=== PATIENT | female | born 1935 | race Asian ===

== ENCOUNTER 2016-12-25 15:37 | Emergency (ER) | payer MEDICARE, OTHER ==
[~2016-12-25] VITALS: Ht 162.6 cm; Wt 62.0 kg
[2016-12-25] MEDS ORDERED: ESTR625TA PO (16:15)
[2016-12-25] MEDS ORDERED: MULTTAB4 PO (16:15)
[2016-12-25] MEDS ORDERED: METO50TA7 PO (16:15)
[2016-12-25] MEDS ORDERED: [UNRECOGNIZED DRUG - CODE] PO (16:15)
--- NOTE | 2016-12-25 17:44 | REP ---
RIGHT LOWER EXTREMITY DUPLEX VEINS: HISTORY: Swelling. There are no filling defects in the deep venous system. The deep venous system is patent. IMPRESSION: There is no deep venous thrombosis. Signed by Zacarias Wyatt MD 12/25/2016 06:21 P
[2016-12-25] MEDS ORDERED: NAPR500T PO (17:59)
--- NOTE | 2016-12-25 18:07 | REP ---
LIMITED RIGHT EXTREMITY NONVASCULAR ULTRASOUND: HISTORY: Tenderness. Nonocclusive thrombus is present in a varicose vein along the medial aspect of the right calf. There is no mass or fluid collection. IMPRESSION: There is nonocclusive thrombus in a varicose vein in the medial right calf. Signed by Zacarias Wyatt MD 12/25/2016 06:21 P
[2016-12-25 18:29] VITALS: BP 158/80
== END 2016-12-25 18:32 | disposition home or self-care (01) ==
LOC: M ED 15:37
DX: I80.01 Phlebitis and thrombophlebitis of superficial vessels of right lower extremity (principal); I83.91 Asymptomatic varicose veins of right lower extremity; I10 Essential (primary) hypertension; F17.210 Nicotine dependence, cigarettes, uncomplicated; Z79.899 Other long term (current) drug therapy

== ENCOUNTER → 2018-09-29 | Outpatient (CLI) | payer MEDICARE, OTHER ==
[~2018-09-29] MED LIST: ESTR625TA PO; METO50TA7 PO; MULTTAB4 PO; NAPR-837 PO; OYST500T7 PO
[2018-09-29 07:09] LABS: HEMATOCRIT 39.1 % (36.0-47.0); HEMOGLOBIN 13.2 g/dl (12.0-15.5); MEAN CORPUSCULAR HEMOGLOBIN 30.9 pg (27.0-33.0); MEAN CORPUSCULAR HGB CONC 33.8 g/dl (32.0-36.5); MEAN CORPUSCULAR VOLUME 91.6 fl (80.0-96.0); PLATELET COUNT, AUTOMATED 280 10^3/uL (150-450); RED BLOOD COUNT 4.27 10^6/uL (4.00-5.40); WHITE BLOOD COUNT 8.1 10^3/uL (4.0-10.0)
[2018-09-29 07:29] LABS: HEMOGLOBIN A1c 5.8 %
[2018-09-29 07:44] LABS: ALBUMIN 3.4 GM/DL (3.2-5.2); ALT/SGPT 11 U/L (12-78); BILIRUBIN,TOTAL 0.3 MG/DL (0.2-1.0); BLOOD UREA NITROGEN 13 MG/DL (7-18); CALCIUM LEVEL 9.2 MG/DL (8.8-10.2); CARBON DIOXIDE LEVEL 26 MEQ/L (21-32); CHLORIDE LEVEL 108 MEQ/L (98-107); CHOLESTEROL LEVEL 207 MG/DL (<200); CHOLESTEROL RISK RATIO 3.285 (<5); CREATININE FOR GFR 0.66 MG/DL (0.55-1.30); GLOMERULAR FILTRATION RATE > 60.0 (>32); GLUCOSE, FASTING 111 MG/DL (70-100); HDL CHOLESTEROL 63 MG/DL (>40); LDL CHOLESTEROL 111 MG/DL (<100); NON-HDL-C 144 MG/DL; POTASSIUM SERUM 4.5 MEQ/L (3.5-5.1); SODIUM LEVEL 139 MEQ/L (136-145); TOTAL PROTEIN 7.2 GM/DL (6.4-8.2); TRIGLYCERIDES LEVEL 165 MG/DL (<150)
--- NOTE | 2018-09-29 07:46 | REP ---
PA and lateral chest: Comparison is 09/05/2015. The lung ordonez are clear. The cardiac size is normal. The daksha, mediastinum, and skeletal structures are unremarkable. Impression: Negative PA and lateral chest. There is no interval change. Electronically Signed by Mane Dye MD 09/29/2018 07:38 A
== END ==
LOC: M LAB 06:25
PROVIDERS: ATTEND Family Medicine
DX: D64.9 Anemia, unspecified (principal); R53.83 Other fatigue; J98.01 Acute bronchospasm

== ENCOUNTER 2019-02-08 16:26 | Emergency (ER) | payer MEDICARE, OTHER ==
[~2019-02-08] VITALS: Ht 167.6 cm; Wt 61.2 kg
--- NOTE | 2019-02-08 17:08 | REP ---
CT study of the cervical spine without contrast: History: . Technique: Helical scanning is acquired and overlapping 2 mm high resolution axial images were generated and reviewed at bone and soft tissue window settings. Coronal and sagittal multiplanar re-formations images are generated. CT findings: There is no evidence of cervical spine element fracture. No skull base fracture is seen. Cervical vertebral body heights are preserved. Alignment is normal. Facet joints are normally aligned bilaterally at each cervical level on multiplanar re-formations images. There is no evidence of intraspinal or paraspinal hematoma. No extra vertebral abnormality is seen. There is degenerative disc spurring at C7-T1 anteriorly on on the left. This is mild. Also some vascular calcification at the carotid bifurcations bilaterally. 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 Impression: Negative CT study of the cervical spine without contrast. No fracture seen. Electronically Signed by Nile Owens MD 02/08/2019 04:59 P
[2019-02-08] MEDS ORDERED: ACETAMINOPHEN 325 MG TAB PO ONE (18:30)
[2019-02-08] MEDS ORDERED: ADACEL/BOOSTRIX VACCINE (DIPHTH/PERTUSS/ACELL/TETANUS)0.5ML SYR (90715) IM ONE (18:30)
[2019-02-08] MEDS ORDERED: NEOSPORIN OINT 0.9 GM PKT (FLOOR STOCK) TOP ONE (18:30)
--- NOTE | 2019-02-08 19:11 | REP ---
Pelvis right hip: Two views. History: Pain after a fall from a ladder. Findings: AP and frog-leg views of the hip and AP view of the pelvis are presented. Bony pelvic ring is intact. Femoral heads are smooth and rounded joint spaces are preserved. No pelvic or sacral fracture is seen. No hip fractures noted. Impression: No fracture noted. Electronically Signed by Nile Owens MD 02/08/2019 07:03 P
[2019-02-08 19:57] VITALS: BP 190/93
--- NOTE | 2019-02-09 10:22 | REP ---
CT brain without contrast: History: Injury in a fall from a ladder. No comparison study. CT findings: Preliminary digital economics department chair radiograph is unremarkable. The bony calvarium is intact on bone window settings. There is a right posterior parietal scalp hematoma. No skull fracture is appreciated. There is mucosal thickening affecting the maxillary ethmoidal and left frontal sinuses. No intraorbital abnormalities appreciated. There is mild diffuse cerebral atrophy. Vascular calcification is visible in the distal carotid arteries. There is no evidence of intracranial hemorrhage. No acute infarction is seen. There are mild small vessel changes. Impression: Vascular calcification, diffuse atrophy, and small vessel changes. No intracranial injury is seen. No evidence of skull fracture. There is a right parietal scalp hematoma. Electronically Signed by Nile Owens MD 02/09/2019 07:09 P
== END 2019-02-08 20:03 | disposition home or self-care (01) ==
LOC: M ED 16:26
DX: S50.311A Abrasion of right elbow, initial encounter (principal); S70.01XA Contusion of right hip, initial encounter; S00.03XA Contusion of scalp, initial encounter; W11.XXXA Fall on and from ladder, initial encounter; Y92.018 Other place in single-family (private) house as the place of occurrence of the external cause; I10 Essential (primary) hypertension; Z79.899 Other long term (current) drug therapy

== ENCOUNTER → 2021-10-29 | Outpatient (CLI) | payer MEDICARE, OTHER ==
[~2021-10-29] MED LIST changes: +MULT1TAB74 PO; -MULTTAB4 PO; -OYST500T7 PO; +OYST500T8 PO
== END ==
LOC: M RAD 11:19
PROVIDERS: ATTEND Family Medicine
DX: M17.11 Unilateral primary osteoarthritis, right knee (principal)

== ENCOUNTER → 2022-12-12 | Outpatient (CLI) | payer MEDICARE, OTHER ==
[2022-12-12 07:56] LABS: HEMATOCRIT 39.3 % (36.0-47.0); HEMOGLOBIN 12.7 g/dl (12.0-15.5); MEAN CORPUSCULAR HEMOGLOBIN 31.2 pg (27.0-33.0); MEAN CORPUSCULAR HGB CONC 32.3 g/dl (32.0-36.5); MEAN CORPUSCULAR VOLUME 96.6 fl (80.0-96.0); PLATELET COUNT, AUTOMATED 232 10^3/uL (150-450); RED BLOOD COUNT 4.07 10^6/uL (4.00-5.40); WHITE BLOOD COUNT 5.1 10^3/uL (4.0-10.0)
[2022-12-12 08:22] LABS: ALBUMIN 3.2 G/DL (3.2-5.2); ALKALINE PHOSPHATASE 52 U/L (46-116); ALT/SGPT < 9 U/L (7.0-40); AST/SGOT 17 U/L (<34); BILIRUBIN,TOTAL 0.6 MG/DL (0.3-1.2); BLOOD UREA NITROGEN 16 MG/DL (9-23); CALCIUM LEVEL 9.1 MG/DL (8.3-10.6); CARBON DIOXIDE LEVEL 30 MMOL/L (20-31); CHLORIDE LEVEL 106 MMOL/L (98-107); CHOLESTEROL LEVEL 187 MG/DL (<200); CHOLESTEROL RISK RATIO 2.54 (<5); GLOMERULAR FILTRATION RATE > 60.0 (>32); GLUCOSE, FASTING 91 MG/DL (74-106); HDL CHOLESTEROL 73.6 MG/DL (>40); LDL CHOLESTEROL 96.8 MG/DL (<100); NON-HDL-C 113.4 MG/DL; POTASSIUM SERUM 4.2 MMOL/L (3.5-5.1); SODIUM LEVEL 139 MMOL/L (136-145); TOTAL PROTEIN 6.3 G/DL (5.7-8.2); TRIGLYCERIDES LEVEL 83 MG/DL (<150)
[2022-12-12 08:24] LABS: THYROID STIMULATING HORMONE 0.629 uIU/ML (0.55-4.78); TOTAL 25(OH) VITAMIN D 44.5 NG/ML (20.0-100.0)
[2022-12-12 09:49] LABS: HEMOGLOBIN A1c 5.5 % (4.0-6.0)
== END ==
LOC: M RAD 06:40
PROVIDERS: ATTEND Family Medicine
DX: I10 Essential (primary) hypertension (principal); R53.83 Other fatigue; E03.9 Hypothyroidism, unspecified

== ENCOUNTER → 2023-09-08 | Outpatient (CLI) | payer MEDICARE, OTHER ==
[2023-09-08 08:45] LABS: HEMATOCRIT 42.3 % (36.0-47.0); HEMOGLOBIN 13.8 g/dl (12.0-15.5); MEAN CORPUSCULAR HEMOGLOBIN 31.2 pg (27.0-33.0); MEAN CORPUSCULAR HGB CONC 32.6 g/dl (32.0-36.5); MEAN CORPUSCULAR VOLUME 95.7 fl (80.0-96.0); PLATELET COUNT, AUTOMATED 231 10^3/uL (150-450); RED BLOOD COUNT 4.42 10^6/uL (4.00-5.40); WHITE BLOOD COUNT 5.6 10^3/uL (4.0-10.0)
[2023-09-08 09:17] LABS: ALBUMIN 3.5 G/DL (3.2-5.2); ALKALINE PHOSPHATASE 55 U/L (46-116); ALT/SGPT < 9 U/L (7.0-40); AST/SGOT 16 U/L (<34); BILIRUBIN,TOTAL 0.7 MG/DL (0.3-1.2); BLOOD UREA NITROGEN 14 MG/DL (9-23); CALCIUM LEVEL 9.7 MG/DL (8.3-10.6); CARBON DIOXIDE LEVEL 32 MMOL/L (20-31); CHLORIDE LEVEL 107 MMOL/L (98-107); CHOLESTEROL LEVEL 190 MG/DL (<200); CHOLESTEROL RISK RATIO 2.72 (<5); CREATININE FOR GFR 0.76 MG/DL (0.55-1.30); GLOMERULAR FILTRATION RATE > 60.0 (>32); GLUCOSE, FASTING 86 MG/DL (74-106); HDL CHOLESTEROL 69.7 MG/DL (>40); LDL CHOLESTEROL 91.9 MG/DL (<100); NON-HDL-C 120.3 MG/DL; POTASSIUM SERUM 4.5 MMOL/L (3.5-5.1); SODIUM LEVEL 141 MMOL/L (136-145); TOTAL PROTEIN 6.5 G/DL (5.7-8.2); TRIGLYCERIDES LEVEL 142 MG/DL (<150)
[2023-09-08 09:19] LABS: THYROID STIMULATING HORMONE 1.047 uIU/ML (0.55-4.78)
[2023-09-08 09:26] LABS: HEMOGLOBIN A1c 5.4 % (4.0-6.0)
== END ==
LOC: M RAD 07:58
PROVIDERS: ATTEND Family Medicine
DX: I10 Essential (primary) hypertension (principal)

== ENCOUNTER 2025-01-07 06:55 | Emergency (ER) | payer MEDICARE, OTHER ==
[~2025-01-07] VITALS: Ht 167.6 cm; Wt 54.8 kg
[2025-01-07] MEDS ORDERED: METO1TAB87 PO (09:38)
[2025-01-07 10:44] LABS: KETONE, URINE AUTO RFX NEGATIVE (NEGATIVE); NITRITE, URINE AUTO RFX NEGATIVE (NEGATIVE); RBC, URINE AUTO RFX 90 /HPF (0-3); SQUAM EPITHELIAL CELL UR AURFX 1 /HPF (0-6)
[2025-01-07 10:46] LABS: LEUKOCYTE ESTERASE UR AUTO RFX 3+ (NEGATIVE); WBC, URINE AUTO RFX TNTC /HPF (0-3)
[2025-01-07] MEDS: METOPROLOL TART 25 MG TABLET PO ONE (10:46)
[2025-01-07 12:16] LABS: BASO # 0.0 10^3/uL (0.0-0.2); BASO % 0.5 % (0.0-1.0); EOS # 0.5 10^3/uL (0.0-0.5); EOS % 6.9 % (0.0-3.0); LYMPH # 2.2 10^3/uL (1.5-5.0); LYMPH % 29.4 % (24.0-44.0); MONO # 0.4 10^3/uL (0.0-0.8); MONO % 6.0 % (2.0-8.0); NEUTROPHILS # 4.2 10^3/uL (1.5-8.5); NEUTROPHILS % 56.9 % (36.0-66.0); PLATELET COUNT, AUTOMATED 234 10^3/uL (150-450)
[2025-01-07 13:01] LABS: ALT/SGPT < 9 U/L (7.0-40); AST/SGOT 28 U/L (<34); CALCIUM LEVEL 9.9 MG/DL (8.3-10.6); CARBON DIOXIDE LEVEL 30 MMOL/L (20-31); CHLORIDE LEVEL 103 MMOL/L (98-107); CREATININE FOR GFR 0.80 MG/DL (0.55-1.30); GLOMERULAR FILTRATION RATE 71.3 (>32); POTASSIUM SERUM 6.3 MMOL/L (3.5-5.1); SODIUM LEVEL 141 MMOL/L (136-145)
[2025-01-07] MEDS ORDERED: ISOVUE-370 76% 100 ML VIAL As Ordered ONE (13:03)
[2025-01-07] MEDS ORDERED: CALC-356 PO (13:18)
[2025-01-07] MEDS ORDERED: MULT-90 PO (13:18)
[2025-01-07] MEDS ORDERED: HOME MED LIST COMPLETE! XX SCH (13:20)
[2025-01-07 13:32] LABS: CK-MB VALUE MASS 3.5 NG/ML (<3.6)
[2025-01-07] MEDS: CALCIUM CHLORIDE 10% 1 GM/10 ML SYR IV ONE (13:32)
[2025-01-07 13:35] LABS: CPK CREATINE PHOSPHOKINASE 97 U/L (34-145); MB/CK RELATIVE INDEX 3.60 (< OR =4)
[2025-01-07 14:34] LABS: CALCIUM LEVEL 10.8 MG/DL (8.3-10.6); CARBON DIOXIDE LEVEL 30.0 MMOL/L (20-31); CHLORIDE LEVEL 102.0 MMOL/L (98-107); CREATININE FOR GFR 0.7 MG/DL (0.55-1.30); GLOMERULAR FILTRATION RATE 83.7 (>32); POTASSIUM SERUM 4.9 MMOL/L (3.5-5.1); SODIUM LEVEL 140.0 MMOL/L (136-145)
[2025-01-07] MEDS ORDERED: CEFD300C PO (15:38)
[2025-01-07] MEDS ORDERED: PHEN-372 PO (15:38)
[2025-01-07] MEDS ORDERED: NORV5TAB PO (15:44)
[2025-01-07 15:48] VITALS: BP 198/104
[2025-01-07] MEDS: amLODIPine 5 MG TAB PO ONE (15:48)
[2025-01-07 16:21] VITALS: BP 200/96; TEMP 96.6; O2SAT 99
== END 2025-01-07 16:23 | disposition home or self-care (01) ==
LOC: M ED 06:55
DX: N39.0 Urinary tract infection, site not specified (principal); I10 Essential (primary) hypertension; F17.210 Nicotine dependence, cigarettes, uncomplicated; Z79.899 Other long term (current) drug therapy; Z79.810 Long term (current) use of selective estrogen receptor modulators (SERMs)
CPT/HCPCS: 74177; 80048; 80053; 81001; 82550; 82553; 84484; 85025; 87088; 87186; 93005; 96374; 99284; J0618; Q9967

== ENCOUNTER → 2025-02-14 | Outpatient (CLI) | payer MEDICARE, OTHER ==
[~2025-02-14] MED LIST changes: +CALC-356 PO; +CEFD300C PO; +METO1TAB87 PO; +MULT-90 PO; +NORV5TAB PO; +PHEN-372 PO
[2025-02-14 19:09] LABS: BASO # 0.0 10^3/uL (0.0-0.2); BASO % 0.6 % (0.0-1.0); EOS # 0.2 10^3/uL (0.0-0.5); EOS % 3.5 % (0.0-3.0); LYMPH # 2.0 10^3/uL (1.5-5.0); LYMPH % 30.0 % (24.0-44.0); MONO # 0.4 10^3/uL (0.0-0.8); MONO % 5.4 % (2.0-8.0); NEUTROPHILS # 4.0 10^3/uL (1.5-8.5); NEUTROPHILS % 60.0 % (36.0-66.0); PLATELET COUNT, AUTOMATED 228 10^3/uL (150-450)
[2025-02-14 19:23] LABS: ALT/SGPT < 9 U/L (7.0-40); AST/SGOT 28 U/L (<34); CALCIUM LEVEL 10.0 MG/DL (8.3-10.6); CARBON DIOXIDE LEVEL 29 MMOL/L (20-31); CHLORIDE LEVEL 104 MMOL/L (98-107); CHOLESTEROL LEVEL 238 MG/DL (<200); CHOLESTEROL RISK RATIO 3.13 (<5); CREATININE FOR GFR 0.75 MG/DL (0.55-1.30); GLOMERULAR FILTRATION RATE 77.0 (>32); LDL CHOLESTEROL 131.9 MG/DL (<100); NON-HDL-C 162.1 MG/DL; POTASSIUM SERUM 5.2 MMOL/L (3.5-5.1); SODIUM LEVEL 142 MMOL/L (136-145); TRIGLYCERIDES LEVEL 151 MG/DL (<150)
[2025-02-14 19:44] LABS: ESTIMATED AVERAGE GLUCOSE 108.0 MG/DL (60-110)
== END ==
LOC: M PLALAB 12:08
PROVIDERS: ATTEND Student in an Organized Health Care Education/Training Program
DX: Z00.00 Encounter for general adult medical examination without abnormal findings (principal); E78.00 Pure hypercholesterolemia, unspecified

== ENCOUNTER → 2025-04-21 | Outpatient (CLI) | payer MEDICARE, OTHER | LOC: M CARPUL 09:29 | PROVIDERS: ATTEND Student in an Organized Health Care Education/Training Program | DX: R01.1 Cardiac murmur, unspecified (principal); I50.30 Unspecified diastolic (congestive) heart failure; I08.0 Rheumatic disorders of both mitral and aortic valves; I37.1 Nonrheumatic pulmonary valve insufficiency ==

== ENCOUNTER → 2025-04-28 | Outpatient (CLI) | payer MEDICARE, OTHER | LOC: M WHC 09:32 | PROVIDERS: ATTEND Student in an Organized Health Care Education/Training Program | DX: Z13.820 Encounter for screening for osteoporosis (principal); M81.0 Age-related osteoporosis without current pathological fracture ==